=== PATIENT | male | born 1980 | race Caucasian/White ===

== ENCOUNTER 2017-02-21 10:39 | Emergency (ER) | payer BC ==
[2017-02-21 10:50] VITALS: TEMP 98.1; O2SAT 97
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
[2017-02-21] MEDS ORDERED: ONDANSETRON 4 MG/2 ML VIAL IVP ONE (11:19)
[2017-02-21] MEDS ORDERED: NS 1,000 ML IV ONE (11:19)
[2017-02-21] MEDS ORDERED: HYDROmorphONE/DILAUDID 1 MG/ML SYR IVP ONE ×2 (11:19→12:18)
[2017-02-21] MEDS ORDERED: HYDROmorphONE/DILAUDID 1 MG/ML SYR ONE (11:19)
[2017-02-21] MEDS ORDERED: LORazepam 2 MG/ML INJ IVP ONE (12:18)
[2017-02-21] MEDS ORDERED: LORazepam 2 MG/ML INJ ONE (12:20)
[2017-02-21 15:06] VITALS: BP 97/60; PULSE 61; RESP 14
== END 2017-02-21 16:05 | disposition home or self-care (01) ==
LOC: EDBD 10:39
PROC: 0RSMXZZ Reposition Left Elbow Joint, External Approach (ICD-10-PCS; principal; 2017-02-21)
DX: S53.105A Unspecified dislocation of left ulnohumeral joint, initial encounter (principal); S92.201A Fracture of unspecified tarsal bone(s) of right foot, initial encounter for closed fracture; S92.102A Unspecified fracture of left talus, initial encounter for closed fracture; W17.89XA Other fall from one level to another, initial encounter; Y99.8 Other external cause status; Y93.31 Activity, mountain climbing, rock climbing and wall climbing
CPT/HCPCS: 96374; A4565; J1170; J2060; J2405; L3260; L4386